=== PATIENT | male | born 1960 | race Caucasian/White ===

== ENCOUNTER 2025-01-11 14:57 | Emergency (ER) | payer OTHER, SELFPAY ==
[2025-01-11 15:12] VITALS: BP 163/100
--- NOTE | 2025-01-11 19:05 | ED.GENMED ---
History of Present Illness
General
Chief Complaint: Fall
Source: patient
Time Seen by Provider: 01/11/25 17:25
History of Present Illness
History of Present Illness:
64-year-old male with past medical history of hypertension, hyperlipidemia and zrp-stehhik-gzvcguctg diabetes status post left BKA done in June at [facility] for evaluation with EMS after he was attempting to transfer from his bed to his
wheelchair when his wheelchair wheel broke causing him to fall on the ground sustaining contusion to the left upper arm and left preauricular area but states no other injuries were sustained. He denies any loss consciousness, headaches, visual
changes, focal weakness or numbness, pain with movement of his extremities or any other concerns. Patient states that he is currently staying at a long-term hotel for the last 3 months and his only way of getting around is with his wheelchair and
he is not able to stay at the hotel until he has a new wheelchair.
Past History
Past History
ED Past Medical History: HTN, Hypercholesterolemia and NIDDM
ED Past Surgical History: Orthopedic and Other
Social History
Tobacco: Non-smoker
Alcohol: None
Drug: None
Personal: Single
Living: alone
Review of Systems
Review of Systems
All Other Systems: ROS reviewed and negative except as documented in HPI and ROS
Phy Exam
Physical Exam
Physical Exam:
GENERAL: Alert , in no apparent distress
HEAD: Contusion to the left preauricular area but no breaks in the skin
EYE: conjunctiva clear
NECK: Supple, no significant adenopathy.
ENT: o/p clr, mmm.
CARDIAC: Regular rate and rhythm
LUNGS: Clear breath sounds bilaterally, no acute respiratory distress, no wheezes/rales/rhonchi
NEUROLOGICAL: Alert and oriented
SKIN: Warm and dry, contusion to the left mid to distal humeral area but full range of motion of the extremity
MUSCULOSKELETAL: well perfused.
PSYCH: Normal and appropriate interaction.
Scores
Heart Failure Risk
Heart Failure Risk Score: Not Applicable
Heart Score for Chest Pain Patients
STEMI patient?: Not applicable
Withdrawal Assessment of Alcohol
Withdrawal Assessment Completed?: Not applicable
Course
Orders/Labs/Results
Orders:
Orders
01/11/25 17:48
Case Management Consult ONCE
Case Management Consult: Other
Comment: Patient needs wheelchair. below the knee amputation
Vital Signs
Initial and Last Documented VS:
Initial Vital Signs
Temp Pulse Resp BP Pulse Ox
98.9 F 99 16 163/100 99
01/11/25 15:12 01/11/25 15:12 01/11/25 15:12 01/11/25 15:12 01/11/25 15:12
Last Documented Vital Signs
Temp Pulse Resp BP Pulse Ox
98.9 F 99 16 163/100 99
01/11/25 15:12 01/11/25 15:12 01/11/25 15:12 01/11/25 15:12 01/11/25 15:12
MDM/Problems Addressed
Differential Diagnosis Includes:
Accidental fall, contusion, concussion, I do not have concern for intracranial bleeding or fracture of the extremity
MDM/Problems Addressed:
64-year-old male presenting to the ER for evaluation after he excellently fell when his wheelchair broke, currently does not have a wheelchair that he can use. Unfortunately by the time patient arrived to the emergency department case management
had already left for the day and we are unable to provide patient with a wheelchair. Will keep patient in the ER overnight until case management can see him in the morning provide him with getting a wheelchair. Patient otherwise remained stable.
*Pulse Oximetry
Patient hypoxic: no
ED Attending Note
-
Portions of this chart may have been created with voice recognition software.� Occasional wrong word or��sound alike� substitutions may have occurred due to the inherent limitations of voice recognition software.
Discharge Plan
Departure
Referrals:
UNKNOWN - PT DOES,NOT KNOW [Family Provider]
Interventions
Interventions:
*Risk Screen - Suicide Last Done: 01/11/25 15:12
*General Assessment Last Done: 01/11/25 15:12
*Neglect/Abuse Screening Last Done: 01/11/25 15:12
*ED- Fall Risk Assessment Last Done: 01/11/25 15:12
*ED COVID-19 Vaccine History Last Done: 01/11/25 15:12
ED-Musculoskeletal Assessment Last Done: 01/11/25 17:49
ED-Skin Assessment Last Done: 01/11/25 17:49
Discharge Date and Time
Print Language: THAI
[2025-01-12 06:05] VITALS: BP 138/77
[2025-01-12 08:51] VITALS: BP 138/76
--- NOTE | 2025-01-12 09:17 | CM ---
Addendum entered by Adele Cespedes RN 01/12/25 13:28:
CM spoke with representative phlebotomy services from [facility] [employer]. They will be able to deliver a wheelchair to the patient in the ED tomorrow by 10am. The patient will have to arrange with the company to return the broken one once back in his hotel room.
Patient, attending, and RN updated.
Addendum entered by Adele Cespedes RN 01/12/25 11:14:
Call placed to [facility]. [employer] went into the patient's hotel room. [employer] is the listed company on wheelchair. Call placed to [employer] ([phone]) and left message with comptometer operator requesting call back regarding
wheelchair malfunction. Awaiting call back.
Original Note:
Received CM consult for patient with a broken wheelchair wheel. Reviewed chart notes and spoke with the patient at the bedside. The patient was issued the wheelchair after being in [facility] last June. The patient is currently residing in a long
term hot ([facility] ([phone]). CM inquired about company who provided wheelchair. Patient thought [employer] or [employer]. Contacted both, patient is not current with either. Asked patient to contact [facility]
and ask them to see what name of is listed on the side of the wheelchair. Hotel tell asked for the patient to call back in an hour and they might be able to assist. Per patient, the left from wheel feel off wheelchair, bolt came out. CM asked the
patient if bolt could be reapplied. Patient said police officers looked at wheelchair prior to patient being brought in and felt it was not replaceable, would need new wheel components.
Will call back in around an hour and see if the hotel staff were able to access room to obtain name of the company who provided wheelchair.
--- NOTE | 2025-01-12 15:21 | PTCARENOTE ---
[employer] dropped off pt's New Wheelchair, Leg rest and Seat cushion. Dropped off to room.
== END 2025-01-12 18:03 | disposition home or self-care (01) ==
LOC: EMR 14:57
PROVIDERS: EMERGENCY PHYSICIAN Emergency Medicine
DX: S40.022A Contusion of left upper arm, initial encounter (principal); W05.0XXA Fall from non-moving wheelchair, initial encounter; Y93.89 Activity, other specified; E11.9 Type 2 diabetes mellitus without complications; E78.00 Pure hypercholesterolemia, unspecified; I10 Essential (primary) hypertension; Z79.84 Long term (current) use of oral hypoglycemic drugs; Z89.512 Acquired absence of left leg below knee
CPT/HCPCS: 99282